=== PATIENT | female | born 1995 | race Hispanic/Latino ===

== ENCOUNTER 2022-04-01 09:09 | Outpatient (CLI) | payer OTHER | END 2022-04-01 09:10 | disposition home or self-care (01) | LOC: CSHLAB 09:09 | PROVIDERS: ATTEND Family Medicine | DX: Z20.822 Contact with and (suspected) exposure to COVID-19 (principal) | CPT/HCPCS: 87811 ==

== ENCOUNTER 2022-04-03 06:00 | Inpatient (IN) | payer MEDICAID, OTHER, SELFPAY ==
[2022-04-03] MEDS ORDERED: Ibuprofen 800 MG TAB PO PRN (07:35)
[2022-04-03] MEDS ORDERED: Butorphanol Tartrate 1 MG/ML VIAL SLOW IVP PRN (07:35)
[2022-04-03] MEDS ORDERED: Promethazine HCl 25 MG/ML VIAL IM PRN ×3 (07:35→15:58)
[2022-04-03] MEDS ORDERED: Acetaminophen 500 MG TAB PO PRN (07:35)
[2022-04-03] MEDS ORDERED: Carboprost 250 MCG/ML AMP IM PRN (07:35)
[2022-04-03] MEDS ORDERED: Lidocaine 1% (PF) 30 ML VIAL SC PRN (07:35)
[2022-04-03] MEDS ORDERED: Diphenoxylate HCl/Atropine Tablet PO PRN (07:35)
[2022-04-03] MEDS ORDERED: hydrALAZINE 20 MG/ML VIAL SLOW IVP PRN ×2 (07:35→15:58)
[2022-04-03] MEDS ORDERED: NS w/ Oxytocin 30 units 500 ML IV SCH ×2 (07:35)
[2022-04-03] MEDS ORDERED: Methylergonovine 0.2 MG/ML VIAL IM PRN (07:35)
[2022-04-03] MEDS ORDERED: Ondansetron PF 4 MG/2 ML Vial IVP PRN ×3 (07:35→15:58)
[2022-04-03] MEDS ORDERED: HYDROcodone/Acetaminophen 5/325 mg Tablet PO PRN ×2 (07:35→15:58)
[2022-04-03] MEDS: Lactated Ringer's 1,000 ML IV SCH ×3 (07:50→20:15)
[2022-04-03] MEDS ORDERED: Bupivacaine 0.25% HCL 30 ML VIAL ONE (08:00)
[2022-04-03 08:25] LABS: Hemoglobin 11.3 g/dL (12.0-15.5); Mean Corpuscular HGB CONC 33.4 g/dL (32.0-36.0); Mean Corpuscular Hemoglobin 31.6 pg (27.0-33.0); Mean Corpuscular Volume 94.4 fl (81.6-98.3); Platelet Count 167 10x3/uL (150-450); RBC Distribution Width 13.2 % (11.5-14.5); Red Blood Cell (RBC) Count 3.58 10x6/uL (3.90-5.03); White Blood Cell (WBC) Count 16.5 10x3/uL (3.5-10.5)
[2022-04-03 08:46] VITALS: BMI 33.6
[2022-04-03 09:00] LABS: Hep B Surf Ag Non-Reactive S/CO (NonReactive); Syphilis Antibody Nonreactive (Nonreactive); Syphilis Antibody Index 0.04 S/CO (<1.00 Non-Reactive)
[2022-04-03 09:01] LABS: HBSAg Index 0.17 S/CO (0-0.99)
[2022-04-03] MEDS ORDERED: Fentanyl 2 mcg/Bup 0.1% Cadd 100 ML ONE (09:16)
[2022-04-03] MEDS ORDERED: Lactated Ringer's 500 ML IV PRN (11:16)
[2022-04-03] MEDS ORDERED: ePHEDrine Sulfate 50 MG/10 ML VIAL SLOW IVP PRN (11:16)
[2022-04-03] MEDS ORDERED: Moisturizing Cream (Eucerin) 113 GM JAR TOP PRN (11:16)
[2022-04-03] MEDS ORDERED: diphenhydrAMINE 50 MG/ML VIAL IVP PRN (11:16)
[2022-04-03] MEDS ORDERED: Acetaminophen 325 MG TAB PO PRN (11:16)
[2022-04-03] MEDS ORDERED: Naloxone HCl 0.4 mg/ml Vial IVP PRN ×2 (11:16)
[2022-04-03] MEDS ORDERED: Communication Order-Pharmacy FS SCH (11:30)
[2022-04-03] MEDS ORDERED: Fentanyl 2 mcg/Bupivacaine 0.1% Cassette 100 ML EPIDURAL SCH (11:30)
[2022-04-03 14:42] LABS: RapidComm Collect By NURSE; pH (Cord, venous) 7.254 (7.250-7.350)
[2022-04-03] MEDS ORDERED: Boostrix 0.5 ML (Tdap) VIAL IM ONE (15:58)
[2022-04-03] MEDS ORDERED: Milk Of Magnesia 30 ML UDCUP PO PRN (15:58)
[2022-04-03] MEDS ORDERED: diphenhydrAMINE 25 MG CAP PO PRN (15:58)
[2022-04-03] MEDS ORDERED: Bisacodyl 10 MG SUPP PR PRN (15:58)
[2022-04-03] MEDS ORDERED: Benzocaine-Menthol 82.5 ML CAN TOP PRN (15:58)
[2022-04-03] MEDS: Ferrous Sulfate 325 MG TAB PO SCH (20:14)
[2022-04-03] MEDS: Ibuprofen 800 MG TAB PO SCH (21:16)
[2022-04-03] MEDS: Docusate 100 MG CAP PO SCH (21:17)
[2022-04-04] MEDS: Ibuprofen 800 MG TAB PO SCH ×2 (05:32→14:49)
[2022-04-04] MEDS: Ferrous Sulfate 325 MG TAB PO SCH ×2 (08:09→15:43)
[2022-04-04] MEDS: Docusate 100 MG CAP PO SCH (08:47)
[2022-04-04 10:12] VITALS: TEMP 98.1
[2022-04-04 15:06] VITALS: BP 118/67
== END 2022-04-04 17:00 | disposition home or self-care (01) | DRG 807 ==
LOC: MERGE 06:00 → CSHLD 07:20 → CSHPP 17:07
PROVIDERS: ADMIT Family Medicine; ATTEND Family Medicine
PROC: 10D07Z6 Extraction of Products of Conception, Vacuum, Via Natural or Artificial Opening (ICD-10-PCS; principal; 2022-04-03)
PROC: 3E0334Z Introduction of Serum, Toxoid and Vaccine into Peripheral Vein, Percutaneous Approach (ICD-10-PCS; 2022-04-03)
PROC: 10907ZC Drainage of Amniotic Fluid, Therapeutic from Products of Conception, Via Natural or Artificial Opening (ICD-10-PCS; 2022-04-03)
PROC: 3E033VJ Introduction of Other Hormone into Peripheral Vein, Percutaneous Approach (ICD-10-PCS; 2022-04-03)
PROC: 0UQMXZZ Repair Vulva, External Approach (ICD-10-PCS; 2022-04-03)
DX: O26.893 Other specified pregnancy related conditions, third trimester (principal); Z37.0 Single live birth; Z67.21 Type B blood, Rh negative; Z3A.40 40 weeks gestation of pregnancy; O76 Abnormality in fetal heart rate and rhythm complicating labor and delivery; Z20.822 Contact with and (suspected) exposure to COVID-19; O71.82 Other specified trauma to perineum and vulva; O69.81X0 Labor and delivery complicated by cord around neck, without compression, not applicable or unspecified
CPT/HCPCS: 36415; 82805; 85027; 85461; 86780; 86850; 86900; 86901; 87340; 90384; 96372; J2590; J7120; S0020